=== PATIENT | female | born 1955 | race Hispanic/Latino ===

== ENCOUNTER 2017-05-23 21:34 | Observation (INO) | payer MEDICARE, OTHER ==
[2017-05-23] MEDS ORDERED: Sodium Chloride 0.9% 1,000 ML IV STA (21:55)
[2017-05-23 22:05] LABS: BASO # 0.03 K/mm3 (0.0-2.0); BASO % 0.3 % (0.0-3.0); EOS # 0.1 (0.0-0.7); GRAN # 7.89 (1.4-6.5); GRAN % 74.7 % (50.0-68.0); HEMATOCRIT 33.4 % (36.0-48.0); LYMPH # 1.8 (1.2-3.4); LYMPH % 16.8 % (22.0-35.0); MEAN CELL VOLUME 84.6 fl (80.0-105.0); MEAN CORPUSCULAR HEMOGLOBIN 27.6 pg (25.0-35.0); MEAN CORPUSCULAR HGB CONC 32.6 g/dl (31.0-37.0); MEAN PLATELET VOLUME 9.5 fl (7.0-11.0); MONO # 0.8 (0.1-0.6); MONO % 7.2 % (1.0-6.0); RED CELL DISTRIBUTION WIDTH 13.8 % (11.5-14.5); WHITE BLOOD COUNT 10.6 10^3/ul (4.5-11.0)
[2017-05-23 22:14] LABS: ALB/GLOB RATIO 1.1 (1.1-1.8); ALKALINE PHOSPHATASE 100 U/L (38-126); ALT/SGPT 21 U/L (7-56); AST/SGOT 36 U/L (14-36); BILIRUBIN,TOTAL 0.7 mg/dL (0.2-1.3); BLOOD UREA NITROGEN 20 mg/dL (7-21); CALCIUM 10.1 mg/dL (8.4-10.5); CARBON DIOXIDE 30 mmol/L (21-33); CHLORIDE 97 mmol/L (98-107); GFR AFRICAN-AMERICAN > 60; GLUCOSE,RANDOM 187 mg/dL (70-110); MAGNESIUM 1.7 mg/dL (1.7-2.2); SODIUM 137 mmol/L (132-148); TOTAL PROTEIN 8.1 g/dL (5.8-8.3)
[2017-05-23 22:20] LABS: INR 1.03 (0.93-1.08); PARTIAL THROMBOPLASTIN TIME 26.8 Seconds (25.1-36.5)
[2017-05-23 22:30] LABS: TROPONIN I < 0.01 ng/mL
--- NOTE | 2017-05-23 22:53 | ED PDOC ---
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 By ED arrival pt. AOx 3 w/ documented triage vitals, endorses rememebering talking with her daughter, then feeling a sudden pain in her rt foot as well as her left neck, w/ sudden left sided scm muscle tenderness. Pt next remembers awakeining to ems query. She denies any current cp/sob/diallo headache / palpitations/nausea nor diaphoresis. Pt has been off ac x 1-1.5 wks. Pt. received rt. tka replacement in 11/07 and sicne then has undergone 5-6 washouts in a long protracted post op course w/ repeat infections, has a known PE which was originally diagnosed in the setting of syncope. PMD's Jean Marie Hudson Bayardo. 05/23/17 22:46 05/23/17 23:04 05/23/17 23:41 Past Medical History - Provider Review Nursing Documentation Reviewed: Yes - Infectious Disease Hx of Infectious Diseases: None - Tetanus Immunization Tetanus Immunization: Unknown - Reproductive Menopause: Yes - Cardiac Hx Cardiac Disorders: Yes Hx Hypertension: Yes Hx Pacemaker: No Other/Comment: CAD - Pulmonary Hx Respiratory Disorders: No Hx Pulmonary Embolism: Yes - Neurological Hx Neurological Disorder: No Hx Dizziness: Yes (SYNCOPE X2) Hx Syncope: Yes Other/Comment: Cerebral aneurysm - HEENT Hx HEENT Disorder: No Other/Comment: left eye aneurysm - Renal Hx Renal Disorder: No Hx Kidney Stones: Yes - Endocrine/Metabolic Hx Endocrine Disorders: Yes Hx Diabetes Mellitus Type 2: Yes - Hematological/Oncological Hx Blood Disorders: No Hx Blood Transfusions: Yes (20 YRS AGO) Hx Blood Transfusion Reaction: No - Integumentary Hx Dermatological Disorder: Yes Hx Eczema: Yes Hx Psoriasis: Yes Other/Comment: NECROSIS RIGHT KNEE - Musculoskeletal/Rheumatological Hx Musculoskeletal Disorders: Yes Hx Arthritis: Yes Hx Back Pain: Yes Hx Falls: Yes Hx Herniated Disk: Yes Hx Unsteady Gait: Yes Other/Comment: LIMIT JOINT MOTION - Gastrointestinal Hx Gastrointestinal Disorders: No Hx Gastroesophageal Reflux: Yes Other/Comment: Umbilical Hernia Repair - Genitourinary/Gynecological Hx Genitourinary Disorders: No Other/Comment: KIDNEY STONES 12-04-12 - Psychiatric Hx Psychophysiologic Disorder: No Hx Depression: No Hx Emotional Abuse: No Hx Physical Abuse: No Hx Substance Use: No - Surgical History Hx Appendectomy: Yes Hx Hysterectomy: Yes Hx Joint Replacement: Yes (RIGHT KNEE) Hx Orthopedic Surgery: Yes (RIGHT KNEE X3) Hx Tonsillectomy: Yes Other/Comment: HYSTERECTOMY - Anesthesia Hx Anesthesia: Yes Hx Anesthesia Reactions: No Hx Malignant Hyperthermia: No - Suicidal Assessment Feels Threatened In Home Enviroment: No Family/Social History - Physician Review Nursing Documentation Reviewed: Yes Family/Social History: No Known Family HX Smoking Status: Never Smoked Hx Alcohol Use: No Hx Substance Use: No Hx Substance Use Treatment: No Allergies/Home Meds Allergies/Adverse Reactions: Allergies codeine Allergy (Severe, Verified 05/23/17 21:59) HALLUCINATIONS Home Medications: Home Meds Medication Instructions Recorded Confirmed Metformin HCl 1,000 mg PO BID 04/11/12 05/22/17 Canagliflozin [Invokana] 300 mg PO QAM 04/14/16 05/22/17 Valsartan [Diovan] 160 mg PO DAILY 09/28/16 05/22/17 Acetaminophen [Tylenol 325mg tab] 650 mg PO Q4H PRN 12/01/16 05/22/17 Aspirin [Ecotrin] 81 mg PO DAILY 02/16/17 05/22/17 Atorvastatin [Lipitor] 40 mg PO HS 02/16/17 05/22/17 Calcium Carbonate/Vitamin D3 1 tab PO BID 02/16/17 05/22/17 [Calcium 500-Vit D3 200 Tablet] Carbamide Peroxide [Debrox Ear 1 drop AU BID 02/16/17 05/22/17 Drops] Clotrimazole/Betamethasone 1 appl TOP BID 02/16/17 05/22/17 [Lotrisone] DULoxetine [Cymbalta] 30 mg PO HS 02/16/17 05/22/17 Diclofenac Sodium [Voltaren] 1 appl TOP BID 02/16/17 05/22/17 Lidocaine Gel 4% 1 appl TOP BID 02/16/17 05/22/17 Multivitamin [Multi-Vitamin Daily] 1 tab PO DAILY 02/16/17 05/22/17 Phenyleph/Pramoxin/Glycr/W.pet 1 appl [place] DAILY PRN 02/16/17 05/22/17 [Preparation H Cream] Pregabalin [Lyrica] 100 mg PO TID 02/16/17 05/22/17 Zinc Oxide 1 appl TOP QSHIFT 02/16/17 05/22/17 traMADol [Ultram] 100 mg PO Q8H PRN 02/16/17 05/22/17 Acetaminophen/Codeine 1 tab PO Q4 PRN 05/22/17 05/22/17 [Tylenol/Codeine 300 MG/30 MG] Meclizine [Antivert] 12.5 mg PO BID 05/22/17 05/22/17 Rosuvastatin Calcium [Crestor] 40 mg PO DAILY 05/22/17 05/22/17 Review of Systems - Physician Review All systems were reviewed & negative as marked: Yes - Review of Systems Constitutional: Normal Eyes: Normal ENT: Normal Respiratory: Normal Cardiovascular: Normal Gastrointestinal: Normal Genitourinary Female: Normal Musculoskeletal: Normal Skin: Normal Neurological: Normal Endocrine: Normal Hemo/Lymphatic: Normal Psychiatric: Normal Physical Exam Vital Signs Temp Pulse Resp BP Pulse Ox 05/23/17 22:01 98.5 F 80 22 119/59 L 97 05/23/17 21:34 98.5 F 95 H 16 119/57 L 96 Temperature: Afebrile Blood Pressure: Normal Pulse: Regular Respiratory Rate: Normal Appearance: Positive for: Well-Appearing, Non-Toxic, Comfortable Pain Distress: None Mental Status: Positive for: Alert and Oriented X 3 Finger Stick Blood Glucose: 187 - Systems Exam Head: Present: Atraumatic, Normocephalic Pupils: Present: PERRL Extroacular Muscles: Present: EOMI Conjunctiva: Present: Normal Mouth: Present: Moist Mucous Membranes Neck: Present: Other (left sided scm ttp , no auscultatble bruit therein ) Respiratory/Chest: Present: Clear to Auscultation, Good Air Exchange. No: Respiratory Distress, Accessory Muscle Use Cardiovascular: Present: Regular Rate and Rhythm, Normal S1, S2. No: Murmurs Abdomen: Present: Normal Bowel Sounds. No: Tenderness, Distention, Peritoneal Signs Back: Present: Normal Inspection Upper Extremity: Present: Normal Inspection. No: Cyanosis, Edema Lower Extremity: Present: Other (rt knee w/ relative calor, but no cellultic changes, + knee drain in place w/ clean serosanguinous fluid draining therefrom , no politeal fossa fullnes/calf ttp, but rle mildly swollen). No: Edema Neurological: Present: GCS=15, CN II-XII Intact, Speech Normal, Motor Func Grossly Intact, Normal Sensory Function, Normal Cerebellar Funct, Norm Deep Tendon Reflexes, Gait Normal, Other (nihss:0) Skin: Present: Warm, Dry, Normal Color. No: Rashes Psychiatric: Present: Alert, Oriented x 3, Normal Insight, Normal Concentration Medical Decision Making ED Course and Treatment: r/o PE vs aortic dissection the former of much higher probability pt. should be repleced on ac regardless if dissection (-) and c head ctw/ and w/ out contrast (-) cerebral aneurysmal ruputre(-). Given fact that ictus< 1 hour of onset lp not necessary to r/o xanthrochromia/sah. Pt should be admitted for ac bridging. 05/23/17 23:09 - Lab Interpretations Lab Results: 05/23/17 21:57 05/23/17 21:57 Lab Results 05/23/17 21:57: PT 11.2, INR 1.03, APTT 26.8 05/23/17 21:57: Sodium 137, Potassium 5.0, Chloride 97 L, Carbon Dioxide 30, Anion Gap 15, BUN 20, Creatinine 0.9, Est GFR ( Amer) > 60, Est GFR (Non- Af Amer) > 60, Random Glucose 187 H, Calcium 10.1, Magnesium 1.7, Total Bilirubin 0.7, AST 36, ALT 21, Alkaline Phosphatase 100, Lactate Dehydrogenase 425, Total Creatine Kinase 77, Troponin I < 0.01, NT-Pro-B Natriuret Pep 173, Total Protein 8.1, Albumin 4.3, Globulin 3.8, Albumin/Globulin Ratio 1.1 05/23/17 21:57: WBC 10.6 D, RBC 3.95, Hgb 10.9 L, Hct 33.4 L, MCV 84.6, MCH 27.6, MCHC 32.6, RDW 13.8, Plt Count 284, MPV 9.5, Gran % 74.7 H, Lymph % (Auto ) 16.8 L, [place] % (Auto) 7.2 H, Eos % (Auto) 1.0 L, Baso % (Auto) 0.3, Gran # 7.89 H, Lymph # 1.8, [place] # 0.8 H, Eos # 0.1, Baso # 0.03 - RAD Interpretation Radiology Orders: 05/23/17 21:52 CHEST PORTABLE [RAD] Stat 05/23/17 21:53 ANGIOGRAPHY DISECTION PROTOCOL [CT] Stat CTA HEAD & NECK BUNDLE [CT] Stat 05/23/17 22:46 HEAD W/O CONTRAST [CT] Stat - Medication Orders Current Medication Orders: Discontinued Medications Sodium Chloride (Sodium Chloride 0.9%) 1,000 mls @ 999 mls/hr IV .Q1H1M STA Stop: 05/23/17 22:55 Last Admin: 05/23/17 22:52 Dose: 999 mls/hr eMAR Start Stop Document 05/23/17 22:52 SC (Rec: 05/23/17 22:52 SC [id number]) Intravenous Solution Start Date 05/23/17 Start Time 22:52 End Date 05/23/17 End time 23:52 Total Infusion Time 60 Disposition/Present on Arrival - Present on Arrival History of DVT/PE: Yes History of Uncontrolled Diabetes: Yes Urinary Catheter: No History of Decub. Ulcer: No History Surgical Site Infection Following: Orthopedic Procedures - Disposition Referrals: Phil Durand MD [Primary Care Provider] - Follow up with primary Forms: [employer]elight (Chilean)
--- NOTE | 2017-05-23 23:46 | CT ---
EXAM: CT Head Without Intravenous Contrast CLINICAL HISTORY: 61 years old, female; Signs and symptoms; Dizziness; Additional info: Syncope TECHNIQUE: Axial computed tomography images of the head/brain without intravenous contrast. All CT scans at this facility use one or more dose reduction techniques, viz.: automated exposure control; ma/kV adjustment per patient size (including targeted exams where dose is matched to indication; i.e. head); or iterative reconstruction technique. COMPARISON: CT - HEAD W/O (CODE STROKE) 2016-05-07 09:59 FINDINGS: Brain: No acute intracranial hemorrhage. Age-appropriate periventricular white matter disease. No edema. Ventricles: Age-appropriate ventriculomegaly. Bones: No acute displaced fracture. Sinuses: Unremarkable as visualized. No acute sinusitis. Mastoid air cells: Unremarkable as visualized. No mastoid effusion. IMPRESSION: No acute intracranial hemorrhage, or suspicious mass effect.
--- NOTE | 2017-05-24 00:02 | ED PDOC ---
Physical Exam Vital Signs Reviewed: Yes Vital Signs Temp Pulse Resp BP Pulse Ox 05/23/17 22:01 98.5 F 80 22 119/59 L 97 05/23/17 21:34 98.5 F 95 H 16 119/57 L 96 Temperature: Afebrile Blood Pressure: Hypotensive Pulse: Regular Respiratory Rate: Normal Appearance: Positive for: Well-Appearing, Non-Toxic, Comfortable Pain Distress: None Mental Status: Positive for: Alert and Oriented X 3 Finger Stick Blood Glucose: 187 Medical Decision Making ED Course and Treatment: 05/24/17 00:02 Case signed out to me, pending CT scans of neck, head and chest. History noted by Dr. Shabazz, who endorsed patient. Patient with a history of syncopal episode, following pain to right leg and neck area. Patient undergone recent wash out of knee on affected area. Patient has a history of pulmonary embolism (November 2016). Patient was on Coumadin, recently stopped following knee surgery. Currently not on Coumadin. No history of chest pain or shortness of breath. Patient has been awake and alert while in emergency department. CT Head Without Intravenous Contrast IMPRESSION: No acute intracranial hemorrhage, or suspicious mass effect. Dictated and Authenticated by: Fariba Mccormick MD 05/23/2017 11:46 PM Eastern Time ([place] & [place]) CT Angiography Head With Intravenous Contrast FINDINGS: Right internal carotid artery: No acute findings. Intracranial segment is patent with no significant stenosis. No aneurysm. Right anterior cerebral artery: Unremarkable. No occlusion or significant stenosis. No aneurysm. Right middle cerebral artery: Unremarkable. No occlusion or significant stenosis. No aneurysm. Right posterior cerebral artery: Unremarkable. No occlusion or significant stenosis. No aneurysm. Right vertebral artery: Unremarkable as visualized. Left internal carotid artery: No acute findings. Intracranial segment is patent with no significant stenosis. No aneurysm. Left anterior cerebral artery: Unremarkable. No occlusion or significant stenosis. No aneurysm. Left middle cerebral artery: Unremarkable. No occlusion or significant stenosis. No aneurysm. Left posterior cerebral artery: Unremarkable. No occlusion or significant stenosis. No aneurysm. Left vertebral artery: Unremarkable as visualized. Basilar artery: Unremarkable. No occlusion or significant stenosis. No aneurysm. IMPRESSION: Normal head CTA. CT Angiography Neck With Intravenous Contrast FINDINGS: VASCULATURE: Right common carotid artery: Unremarkable. No significant stenosis. No dissection or occlusion. Right internal carotid artery: Unremarkable. Extracranial segment is patent with no significant stenosis. No dissection or occlusion. Right external carotid artery: Unremarkable. No occlusion. Right vertebral artery: Unremarkable. No significant stenosis. No dissection or occlusion. Left common carotid artery: Unremarkable. No significant stenosis. No dissection or occlusion. Left internal carotid artery: Unremarkable. Extracranial segment is patent with no significant stenosis. No dissection or occlusion. Left external carotid artery: Unremarkable. No occlusion. Left vertebral artery: Unremarkable. No significant stenosis. No dissection or occlusion. NECK: Bones/joints: No acute fracture. No dislocation. Soft tissues: Unremarkable as visualized. CAROTID STENOSIS REFERENCE USING NASCET CRITERIA: % ICA stenosis = (1 - narrowest ICA diameter/diameter of distal cervical ICA) x 100. Mild - <50% stenosis. Moderate - 50-69% stenosis. Severe - 70-94% stenosis. Near occlusion - 95-99% stenosis. Occluded - 100% stenosis. IMPRESSION: Normal neck CTA. Dictated and Authenticated by: Fariba Mccormick MD 05/24/2017 12:24 AM Eastern Time ([place] & [place]) CT Angiography Chest without and with With Intravenous Contrast IMPRESSION: No pulmonary embolism. No dissection. The lungs are clear. CT Angiography Abdomen and Pelvis With Intravenous Contrast FINDINGS: VASCULATURE: Aorta: No acute findings. No abdominal aortic aneurysm. No dissection. Celiac trunk and mesenteric arteries: No acute findings. No occlusion or significant stenosis. Renal arteries: No acute findings. No occlusion or significant stenosis. Iliac arteries: No acute findings. No occlusion or significant stenosis. ABDOMEN: Liver: No acute findings. Gallbladder and bile ducts: The gallbladder is only minimally distended, without calcified stones. No significant intra- or extrahepatic biliary ductal dilation. Pancreas: Enhances homogeneously. No ductal dilation. No discrete mass. Spleen: No acute findings. Adrenals: No acute findings. Kidneys and ureters: No acute findings. No hydronephrosis or renal calculi. No discrete solid mass. PELVIS: Bladder: No acute findings. Reproductive: Atrophy versus surgical absence. Appendix: The appendix is not definitively visualized, however no pericecal inflammatory change is identified to suggest the presence of acute appendicitis. ABDOMEN and PELVIS: Stomach and bowel: No obstruction. No mucosal thickening. Peritoneum: No significant fluid collection. No free air. Lymph nodes: No pathologically enlarged lymph nodes. Bones: No acute fracture. IMPRESSION: No acute findings in the arterial system of the abdomen and pelvis. Dictated and Authenticated by: Fariba Mccormick MD 05/24/2017 12:21 AM Eastern Time ([place] & [place]) 05/24/17 00:[address] Danielle, who accepts patient under hospitalist service for syncope. - Lab Interpretations Lab Results: 05/23/17 21:57 05/23/17 21:57 Lab Results 05/23/17 21:57: PT 11.2, INR 1.03, APTT 26.8 05/23/17 21:57: Sodium 137, Potassium 5.0, Chloride 97 L, Carbon Dioxide 30, Anion Gap 15, BUN 20, Creatinine 0.9, Est GFR ( Amer) > 60, Est GFR (Non- Af Amer) > 60, Random Glucose 187 H, Calcium 10.1, Magnesium 1.7, Total Bilirubin 0.7, AST 36, ALT 21, Alkaline Phosphatase 100, Lactate Dehydrogenase 425, Total Creatine Kinase 77, Troponin I < 0.01, NT-Pro-B Natriuret Pep 173, Total Protein 8.1, Albumin 4.3, Globulin 3.8, Albumin/Globulin Ratio 1.1 05/23/17 21:57: WBC 10.6 D, RBC 3.95, Hgb 10.9 L, Hct 33.4 L, MCV 84.6, MCH 27.6, MCHC 32.6, RDW 13.8, Plt Count 284, MPV 9.5, Gran % 74.7 H, Lymph % (Auto ) 16.8 L, [place] % (Auto) 7.2 H, Eos % (Auto) 1.0 L, Baso % (Auto) 0.3, Gran # 7.89 H, Lymph # 1.8, [place] # 0.8 H, Eos # 0.1, Baso # 0.03 I have reviewed the lab results: Yes - RAD Interpretation Radiology Orders: 05/23/17 21:52 CHEST PORTABLE [RAD] Stat 05/23/17 21:53 ANGIOGRAPHY DISECTION PROTOCOL [CT] Stat CTA HEAD & NECK BUNDLE [CT] Stat 05/23/17 22:46 HEAD W/O CONTRAST [CT] Stat - Medication Orders Current Medication Orders: Discontinued Medications Sodium Chloride (Sodium Chloride 0.9%) 1,000 mls @ 999 mls/hr IV .Q1H1M STA Stop: 05/23/17 22:55 Last Admin: 05/23/17 22:52 Dose: 999 mls/hr eMAR Start Stop Document 05/23/17 22:52 SC (Rec: 05/23/17 22:52 SC [id number]) Intravenous Solution Start Date 05/23/17 Start Time 22:52 End Date 05/23/17 End time 23:52 Total Infusion Time 60 - Scribe Statement The provider has reviewed the documentation as recorded by the Apolinaribraffy Ruth Provider Scribe Attestation: All medical record entries made by the Scribe were at my direction and personally dictated by me. I have reviewed the chart and agree that the record accurately reflects my personal performance of the history, physical exam, medical decision making, and the department course for this patient. I have also personally directed, reviewed, and agree with the discharge instructions and disposition. Disposition/Present on Arrival - Present on Arrival Any Indicators Present on Arrival: No History of DVT/PE: Yes History of Uncontrolled Diabetes: Yes Urinary Catheter: No History of Decub. Ulcer: No History Surgical Site Infection Following: Orthopedic Procedures - Disposition Have Diagnosis and Disposition been Completed?: Yes Diagnosis: Syncope Disposition: HOSPITALIZED Disposition Time: 00:42 Patient Plan: Observation Condition: STABLE Discharge Instructions (ExitCare): Syncope (ED) Referrals: Phil Durand MD [Primary Care Provider] - Follow up with primary Forms: [employer] ([place] Islander)
--- NOTE | 2017-05-24 00:21 | CT ---
EXAM: CT Angiography Chest without and with With Intravenous Contrast CLINICAL HISTORY: 61 years old, female; Pain; Abdominal pain; Acute; Chest pain; Type not specified; Additional info: R/O dissection vs pe TECHNIQUE: Axial computed tomographic angiography images of the chest with intravenous contrast using pulmonary embolism protocol. All CT scans at this facility use one or more dose reduction techniques, viz.: automated exposure control; ma/kV adjustment per patient size (including targeted exams where dose is matched to indication; i.e. head); or iterative reconstruction technique. MIP reconstructed images were created and reviewed. Coronal and sagittal reformatted images were created and reviewed. CONTRAST: 100 mL of OMNI 350 administered intravenously. COMPARISON: No relevant prior studies available. FINDINGS: Pulmonary arteries: No pulmonary embolism. Aorta: No thoracic aortic aneurysm. No dissection. Lungs: No mass. No consolidation. Pleural spaces: No significant effusion. No pneumothorax. Heart: No cardiomegaly. No significant pericardial effusion. No evidence of right heart dysfunction. Bones: No acute fracture. Lymph nodes: No pathologically enlarged lymph nodes. IMPRESSION: No pulmonary embolism. No dissection. The lungs are clear. EXAM: CT Angiography Abdomen and Pelvis With Intravenous Contrast CLINICAL HISTORY: 61 years old, female; Pain; Abdominal pain; Acute; Chest pain; Type not specified; Additional info: R/O dissection vs pe TECHNIQUE: Axial computed tomographic angiography images of the abdomen and pelvis with intravenous contrast. All CT scans at this facility use one or more dose reduction techniques, viz.: automated exposure control; ma/kV adjustment per patient size (including targeted exams where dose is matched to indication; i.e. head); or iterative reconstruction technique. MIP reconstructed images were created and reviewed. Coronal and sagittal reformatted images were created and reviewed. CONTRAST: 100 mL of OMNI 350 administered intravenously. COMPARISON: No relevant prior studies available. FINDINGS: VASCULATURE: Aorta: No acute findings. No abdominal aortic aneurysm. No dissection. Celiac trunk and mesenteric arteries: No acute findings. No occlusion or significant stenosis. Renal arteries: No acute findings. No occlusion or significant stenosis. Iliac arteries: No acute findings. No occlusion or significant stenosis. ABDOMEN: Liver: No acute findings. Gallbladder and bile ducts: The gallbladder is only minimally distended, without calcified stones. No significant intra- or extrahepatic biliary ductal dilation. Pancreas: Enhances homogeneously. No ductal dilation. No discrete mass. Spleen: No acute findings. Adrenals: No acute findings. Kidneys and ureters: No acute findings. No hydronephrosis or renal calculi. No discrete solid mass. PELVIS: Bladder: No acute findings. Reproductive: Atrophy versus surgical absence. Appendix: The appendix is not definitively visualized, however no pericecal inflammatory change is identified to suggest the presence of acute appendicitis. ABDOMEN and PELVIS: Stomach and bowel: No obstruction. No mucosal thickening. Peritoneum: No significant fluid collection. No free air. Lymph nodes: No pathologically enlarged lymph nodes. Bones: No acute fracture. IMPRESSION: No acute findings in the arterial system of the abdomen and pelvis.
--- NOTE | 2017-05-24 00:24 | CT ---
EXAM: CT Angiography Head With Intravenous Contrast CLINICAL HISTORY: 61 years old, female; Pain; Headache; Additional info: Aneurysm behind eye/syncope TECHNIQUE: Axial computed tomographic angiography images of the head with intravenous contrast using CT angiography protocol. All CT scans at this facility use one or more dose reduction techniques, viz.: automated exposure control; ma/kV adjustment per patient size (including targeted exams where dose is matched to indication; i.e. head); or iterative reconstruction technique. MIP reconstructed images were created and reviewed. Coronal and sagittal reformatted images were created and reviewed. CONTRAST: 50 mL of OMNI 350 administered intravenously. COMPARISON: No relevant prior studies available. FINDINGS: Right internal carotid artery: No acute findings. Intracranial segment is patent with no significant stenosis. No aneurysm. Right anterior cerebral artery: Unremarkable. No occlusion or significant stenosis. No aneurysm. Right middle cerebral artery: Unremarkable. No occlusion or significant stenosis. No aneurysm. Right posterior cerebral artery: Unremarkable. No occlusion or significant stenosis. No aneurysm. Right vertebral artery: Unremarkable as visualized. Left internal carotid artery: No acute findings. Intracranial segment is patent with no significant stenosis. No aneurysm. Left anterior cerebral artery: Unremarkable. No occlusion or significant stenosis. No aneurysm. Left middle cerebral artery: Unremarkable. No occlusion or significant stenosis. No aneurysm. Left posterior cerebral artery: Unremarkable. No occlusion or significant stenosis. No aneurysm. Left vertebral artery: Unremarkable as visualized. Basilar artery: Unremarkable. No occlusion or significant stenosis. No aneurysm. IMPRESSION: Normal head CTA. EXAM: CT Angiography Neck With Intravenous Contrast CLINICAL HISTORY: 61 years old, female; Pain; Headache; Additional info: Aneurysm behind eye/syncope TECHNIQUE: Axial computed tomographic angiography images of the neck with intravenous contrast using CT angiography protocol. All CT scans at this facility use one or more dose reduction techniques, viz.: automated exposure control; ma/kV adjustment per patient size (including targeted exams where dose is matched to indication; i.e. head); or iterative reconstruction technique. MIP reconstructed images were created and reviewed. Coronal and sagittal reformatted images were created and reviewed. CONTRAST: 50 mL of OMNI 350 administered intravenously. COMPARISON: CT - HEAD W/O CONTRAST 2017-05-23 23:17 FINDINGS: VASCULATURE: Right common carotid artery: Unremarkable. No significant stenosis. No dissection or occlusion. Right internal carotid artery: Unremarkable. Extracranial segment is patent with no significant stenosis. No dissection or occlusion. Right external carotid artery: Unremarkable. No occlusion. Right vertebral artery: Unremarkable. No significant stenosis. No dissection or occlusion. Left common carotid artery: Unremarkable. No significant stenosis. No dissection or occlusion. Left internal carotid artery: Unremarkable. Extracranial segment is patent with no significant stenosis. No dissection or occlusion. Left external carotid artery: Unremarkable. No occlusion. Left vertebral artery: Unremarkable. No significant stenosis. No dissection or occlusion. NECK: Bones/joints: No acute fracture. No dislocation. Soft tissues: Unremarkable as visualized. CAROTID STENOSIS REFERENCE USING NASCET CRITERIA: % ICA stenosis = (1 - narrowest ICA diameter/diameter of distal cervical ICA) x 100. Mild - <50% stenosis. Moderate - 50-69% stenosis. Severe - 70-94% stenosis. Near occlusion - 95-99% stenosis. Occluded - 100% stenosis. IMPRESSION: Normal neck CTA.
--- NOTE | 2017-05-24 01:52 | CP.PCM.HP ---
<Kvng Mesa - Last Filed: 05/24/17 23:06> History of Present Illness - History of Present Illness History of Present Illness: This is a 61 year old female with a past medical history for hypertension, DM2, p.e. (on Xarelto) who comes in complaining of a syncopal episode after being discharged from [facility] after a knee replacement surgery. The patient' s daughter reports the mother feeling dizzy in the wheelchair and soon after her head fell to the side and she was un-arousable for a reported 20 seconds. The patient denies any alleviating or modifying factors. The patient denies bowel or bladder incontinence, chest pain, shortness of breath, nausea ,vomiting , abdominal pain, changes in vision, or any other complaints. Surgical history: Appendectomy, hysterectomy, Left knee repair, Tosillectomy Allergies: Codeine Medications: See MAR Family history: Non contributory Social history: No tobacco or etoh. Denies illicit drug use. Present on Admission - Present on Admission Any Indicators Present on Admission: No Review of Systems - Constitutional Constitutional: absent: Anorexia, Chills, Headache, Night Sweats, Weakness - EENT Eyes: absent: Blurred Vision, Diplopia, Discharge, Itchy Eyes, Loss of Peripheral Vision, Requires Corrective Lenses Ears: Dizziness. absent: Disequilibrium Nose/Mouth/Throat: absent: Nasal Trauma, Bleeding Gums, Dysphagia, Mouth Lesions - Cardiovascular Cardiovascular: Syncope. absent: Chest Pain, Irregular Heart Rhythm, Orthopnea , Palpitations, Paroxysmal Nocturnal Dyspnea, Pedal Edema, Slow Heart Rate - Respiratory Respiratory: absent: Dyspnea, Hemoptysis, Stridor, Change in Mucous Color - Gastrointestinal Gastrointestinal: absent: Abdominal Pain, Belching, Dyspepsia, Melena, Nausea, Vomiting - Musculoskeletal Musculoskeletal: absent: Abnormal Gait, Arthralgias, Muscle Weakness, Myalgias, Stiffness - Integumentary Integumentary: absent: Change in Pigmentation, Changing Lesions, Rash, Striae, Swelling, Unusual Bruising - Neurological Neurological: Dizziness, Syncope. absent: Abnormal Hearing, Burning Sensations , Lack of Coordination, Radicular Pain, Tingling - Psychiatric Psychiatric: absent: Behavioral Changes, Depression, Hopelessness, Panic Attacks - Endocrine Endocrine: absent: Change in Body Appearance, Deepening of Voice, Polydipsia, Polyphagia, Polyuria - Hematologic/Lymphatic Hematologic: absent: Easy Bleeding, Easy Bruising Past Patient History - Infectious Disease Hx of Infectious Diseases: None - Tetanus Immunizations Tetanus Immunization: Unknown - Past Medical History & Family History Past Medical History?: Yes - Past Social History Smoking Status: Never Smoked - CARDIAC Hx Cardiac Disorders: Yes Hx Hypertension: Yes Hx Pacemaker: No Other/Comment: CAD - PULMONARY Hx Respiratory Disorders: No Hx Pulmonary Embolism: Yes - NEUROLOGICAL Hx Neurological Disorder: No Hx Dizziness: Yes (SYNCOPE X2) Hx Syncope: Yes Other/Comment: Cerebral aneurysm - HEENT Hx HEENT Problems: No Other/Comment: left eye aneurysm - RENAL Hx Chronic Kidney Disease: No Hx Kidney Stones: Yes - ENDOCRINE/METABOLIC Hx Endocrine Disorders: Yes Hx Diabetes Mellitus Type 2: Yes - HEMATOLOGICAL/ONCOLOGICAL Hx Blood Disorders: No Hx Blood Transfusions: Yes (20 YRS AGO) Hx Blood Transfusion Reaction: No - INTEGUMENTARY Hx Dermatological Problems: Yes Hx Eczema: Yes Hx Psoriasis: Yes Other/Comment: NECROSIS RIGHT KNEE - MUSCULOSKELETAL/RHEUMATOLOGICAL Hx Musculoskeletal Disorders: Yes Hx Arthritis: Yes Hx Back Pain: Yes Hx Falls: Yes Hx Herniated Disk: Yes Hx Unsteady Gait: Yes Other/Comment: LIMIT JOINT MOTION - GASTROINTESTINAL Hx Gastrointestinal Disorders: No Hx Gastroesophageal Reflux: Yes Other/Comment: Umbilical Hernia Repair - GENITOURINARY/GYNECOLOGICAL Hx Genitourinary Disorders: No Other/Comment: KIDNEY STONES 12-04-12 - PSYCHIATRIC Hx Psychophysiologic Disorder: No Hx Depression: No Hx Emotional Abuse: No Hx Physical Abuse: No Hx Substance Use: No - SURGICAL HISTORY Hx Appendectomy: Yes Hx Hysterectomy: Yes Hx Joint Replacement: Yes (RIGHT KNEE) Hx Orthopedic Surgery: Yes (RIGHT KNEE X3) Hx Tonsillectomy: Yes Other/Comment: HYSTERECTOMY - ANESTHESIA Hx Anesthesia: Yes Hx Anesthesia Reactions: No Hx Malignant Hyperthermia: No Meds Allergies/Adverse Reactions: Allergies Allergy/AdvReac Type Severity Reaction Status Date / Time codeine Allergy Severe HALLUCINATI Verified 05/23/17 21:59 ONS Physical Exam - Head Exam Head Exam: ATRAUMATIC, NORMAL INSPECTION, NORMOCEPHALIC - Eye Exam Eye Exam: EOMI, Normal appearance, PERRL. absent: Periorbital tenderness Pupil Exam: NORMAL ACCOMODATION, PERRL. absent: Irregular, Unequal - ENT Exam ENT Exam: Mucous Membranes Moist, Normal Exam, Normal Oropharynx. absent: TM's Normal Bilaterally - Neck Exam Neck exam: Positive for: Normal Inspection. Negative for: Lymphadenopathy, Meningismus, Thyromegaly - Respiratory Exam Respiratory Exam: Clear to Auscultation Bilateral, NORMAL BREATHING PATTERN. absent: Chest Wall Tenderness, Prolonged Expiratory Phase, Respiratory Distress - Cardiovascular Exam Cardiovascular Exam: REGULAR RHYTHM, +S1, +S2. absent: Gallop, Rubs - GI/Abdominal Exam GI & Abdominal Exam: Normal Bowel Sounds, Soft. absent: Distended, Organomegaly , Tenderness - Extremities Exam Extremities exam: Positive for: normal inspection. Negative for: full ROM, joint swelling, pedal edema Additional comments: decreased rom of left extremity - Back Exam Back exam: NORMAL INSPECTION. absent: CVA tenderness (L), CVA tenderness (R), paraspinal tenderness - Neurological Exam Neurological exam: Alert, CN II-XII Intact, Oriented x3 - Psychiatric Exam Psychiatric exam: Normal Affect, Normal Mood - Skin Skin Exam: Dry, Intact, Normal Color Results - Vital Signs Recent Vital Signs: Last Vital Signs Temp 98.5 F 05/23/17 22:01 Pulse 86 05/24/17 01:36 Resp 16 05/24/17 01:36 BP 96/57 L 05/24/17 01:36 Pulse Ox 96 05/24/17 01:36 - Labs Result Diagrams: 05/24/17 06:20 05/24/17 06:20 Assessment & Plan - Assessment and Plan (Free Text) Assessment: 61 year old female with pmhx of hypertension, dm2, and pe and s/p left knee revision who comes in for episode of syncope. Plan: 1.Syncope (cardio vs. neuro) -Hypotensive upon admission s/p 1 Liter of iv fluids in E.D. -1Liter of NS at 125mls/ hr. -Neuro checks q4. -Orthostatics ordered. Will f/u with results. -Neurology consulted. Will f/u with recs. -Cardiology consulted. Will f/u with recs. 2.DM -ISS medium. -Accuchecks ACHS 3. Hypertension -continue home medications 4.H/O of Pulmonary embolism -Xarelto restarted. -no acute intervention required at this time. GI ppx -Protonix DVT/PE ppx -Xarelto <Sukumar Danielle - Last Filed: 05/25/17 19:24> Results - Vital Signs Recent Vital Signs: Last Vital Signs Temp 99 F 05/25/17 18:00 Pulse 87 05/25/17 18:00 Resp 18 05/25/17 18:00 BP 136/67 05/25/17 18:00 Pulse Ox 94 L 05/25/17 06:00 - Labs Result Diagrams: 05/25/17 06:15 05/25/17 06:15 Labs: Laboratory Results - last 24 hr 05/25/17 05/25/17 05/25/17 06:15 06:15 06:15 WBC 6.9 RBC 3.28 L Hgb 8.9 L Hct 27.9 L MCV 85.1 MCH 27.1 MCHC 31.9 RDW 13.8 Plt Count 209 MPV 9.3 Gran % 71.5 H Lymph % (Auto) 19.0 L [place] % (Auto) 7.9 H Eos % (Auto) 1.5 Baso % (Auto) 0.1 Gran # 4.90 Lymph # 1.3 [place] # 0.5 Eos # 0.1 Baso # 0.01 Sodium 142 Potassium 3.9 Chloride 106 Carbon Dioxide 28 Anion Gap 12 BUN 20 Creatinine 0.6 L Est GFR ( Amer) > 60 Est GFR (Non-Af Amer) > 60 Random Glucose 146 H Calcium 8.8 TIBC Ferritin Total Bilirubin 0.5 AST 20 ALT 28 Alkaline Phosphatase 77 Total Protein 6.4 Albumin 3.2 Globulin 3.2 Albumin/Globulin Ratio 1.0 L Vitamin B12 TSH 3rd Generation 0.37 L 05/25/17 05/25/17 08:39 08:39 WBC RBC Hgb Hct MCV MCH MCHC RDW Plt Count MPV Gran % Lymph % (Auto) [place] % (Auto) Eos % (Auto) Baso % (Auto) Gran # Lymph # [place] # Eos # Baso # Sodium Potassium Chloride Carbon Dioxide Anion Gap BUN Creatinine Est GFR ( Amer) Est GFR (Non-Af Amer) Random Glucose Calcium TIBC 263 L Ferritin 65.3 Total Bilirubin AST ALT Alkaline Phosphatase Total Protein Albumin Globulin Albumin/Globulin Ratio Vitamin B12 411 TSH 3rd Generation Attending/Attestation - Attestation I have personally seen and examined this patient.: Yes I have fully participated in the care of the patient.: Yes I have reviewed all pertinent clinical information: Yes Notes (Text): 05/25/17 19:24 Patient was seen when she was in the ER . Medical record was reviewed. Agree with history, physical examination, assessment and plan.
[2017-05-24] MEDS: Sodium Chloride 0.9% 1,000 ML IV SCH ×4 (02:54→19:58)
[2017-05-24 04:05] VITALS: BMI 27.1
[2017-05-24] MEDS ORDERED: Pneumococcal 23-Valent Vaccine IM ONE (04:05)
[2017-05-24] MEDS ORDERED: Influenza Vaccine 60 mcg/0.5 mL SYR (4YR UP) IM ONE (04:05)
[2017-05-24 07:13] LABS: BASO # 0.02 K/mm3 (0.0-2.0); BASO % 0.3 % (0.0-3.0); EOS # 0.1 (0.0-0.7); EOS % 0.9 % (1.5-5.0); GRAN # 5.7 (1.4-6.5); GRAN % 72.3 % (50.0-68.0); HEMATOCRIT 30.5 % (36.0-48.0); LYMPH # 1.5 (1.2-3.4); LYMPH % 19.4 % (22.0-35.0); MEAN CELL VOLUME 85.7 fl (80.0-105.0); MEAN CORPUSCULAR HGB CONC 31.5 g/dl (31.0-37.0); MEAN PLATELET VOLUME 9.5 fl (7.0-11.0); MONO # 0.6 (0.1-0.6); MONO % 7.1 % (1.0-6.0); RED CELL DISTRIBUTION WIDTH 13.6 % (11.5-14.5); WHITE BLOOD COUNT 7.9 10^3/ul (4.5-11.0)
[2017-05-24 07:25] LABS: ALB/GLOB RATIO 1.1 (1.1-1.8); ALKALINE PHOSPHATASE 81 U/L (38-126); ALT/SGPT 24 U/L (7-56); AST/SGOT 28 U/L (14-36); BILIRUBIN,TOTAL 0.4 mg/dL (0.2-1.3); BLOOD UREA NITROGEN 23 mg/dL (7-21); CALCIUM 9.3 mg/dL (8.4-10.5); CARBON DIOXIDE 31 mmol/L (21-33); CHLORIDE 102 mmol/L (98-107); GFR AFRICAN-AMERICAN > 60; GLUCOSE,RANDOM 173 mg/dL (70-110); POTASSIUM 4.3 mmol/L (3.6-5.0); SODIUM 141 mmol/L (132-148); TOTAL PROTEIN 6.9 g/dL (5.8-8.3)
[2017-05-24 07:31] LABS: TROPONIN I < 0.01 ng/mL
[2017-05-24] MEDS: Pantoprazole 40 mg EC Tab PO SCH (09:01)
[2017-05-24 09:57] LABS: CHOLESTEROL 156 mg/dL (130-200)
--- NOTE | 2017-05-24 10:15 | RAD ---
HISTORY: syncope COMPARISON: 05/15/2017 FINDINGS: LUNGS: No active pulmonary disease. PLEURA: No significant pleural effusion identified, no pneumothorax apparent. CARDIOVASCULAR: Top-normal heart size OSSEOUS STRUCTURES: Thoracic spondylosis. Bilateral shoulder arthrosis VISUALIZED UPPER ABDOMEN: Normal. OTHER FINDINGS: None. IMPRESSION: No interval acute cardiopulmonary pathology noted
--- NOTE | 2017-05-24 13:24 | CON ---
DATE: 05/24/2017 NEUROLOGY CONSULTATION CHIEF COMPLAINT: Syncope. HISTORY OF PRESENT ILLNESS: A 61-year-old woman with history of hypertension, type 2 diabetes mellitus, history of PE on Xarelto who complained of syncopal episode and has been discharged from [facility] after knee replacement surgery on the left knee. The patient felt dizzy in the wheelchair and sooner had fell to the side and she was unarousable for 20 seconds. No bowel or bladder incontinence. No history of seizure disorder and no history of meningitis. CAT scan of the head showed no acute intracranial abnormalities. CT angio of the head and neck showed no abnormalities. Currently, she is moving all extremities. No pronator seen. Sensory exam; light touch, pinprick, proprioception, and vibration is intact. She is on Lyrica for neuropathic pain 100 mg p.o. t.i.d. Currently, no further dizzy episodes. She was found to have low systolic and diastolic blood pressure when she came in and was given a bag of IV fluids. Currently, she is feeling much better. PAST MEDICAL HISTORY: History of tremors, appendectomy, hysterectomy, left knee repair, history of type 2 diabetes mellitus, PE on Xarelto, and hypertension. REVIEW OF SYSTEMS: A 14-point review of systems is negative except as per the HPI. MEDICATIONS: Reviewed by nurse reconciliation sheet. ALLERGIES: SHE IS ALLERGIC TO CODEINE. SOCIAL HISTORY: No illicit drug use, smoking, or EtOH abuse. PHYSICAL EXAMINATION: VITAL SIGNS: Temperature of 98.7, pulse rate of 85, blood pressure of 114/57, respiratory rate of 20, and oxygen saturation is 96% on room air. GENERAL: The patient is sitting up in bed, in no acute distress. HEENT: Atraumatic and normocephalic. PERRLA. Extraocular muscles intact. NECK: Supple. No JVD. No adenopathy noted. LUNGS: Clear to auscultation. No adventitious sounds. HEART: S1 and S2. Normal rate and rhythm. No murmurs, rubs or gallops. ABDOMEN: Soft, nontender, and nondistended. Bowel sounds are present. EXTREMITIES: No clubbing. No cyanosis. Peripheral pulses are 2+ bilaterally. NEUROLOGIC: The patient is alert and oriented to person, place, month and year. Speech is fluent without any errors. Cranial nerves II through XII are intact. Motor exam: Moves all extremities equally. Toes are downgoing bilaterally. Sensory exam: Light touch, pinprick, proprioception, and vibration is intact. DTRs are 2+ throughout except for 1 at the knees. Coordination of [id number] intact. Gait is deferred for now. LABORATORY DATA: Sodium is 137, potassium is 5, chloride is 97, carbon dioxide is 30, BUN of 20, creatinine of 0.9, and random glucose of 187. ASSESSMENT AND PLAN: A 61-year-old woman with history of hypertension, type 2 diabetes mellitus, diabetic peripheral neuropathy, history of pulmonary embolus on Xarelto, status post left knee revision who comes in with the episodes of syncope, found to have a low systolic and diastolic blood pressures given 1 liter intravenous fluids in the Emergency Room and was consulted, likely syncope is most likely a vasovagal from the cerebral hypoperfusion to the brain from low blood pressures. RECOMMENDATIONS: At this time recommended: 1. Orthostatic vital signs. 2. Keep blood pressure between 140 to 180. 3. Avoid sedative medications. 4. Advice adequate hydration. 5. Continue with Xarelto; continue since she has a history of PE, and continue with GI and DVT prophylaxis. No further neurological workup needed at this time. Get PT evaluation. Thank you for this consult. Ashwin Bentley MD
--- NOTE | 2017-05-24 17:02 | CARD ---
APPROVED REPORT EKG Measurement Heart [id number] <Conclusion> Normal sinus rhythm Normal ECG
[2017-05-24] MEDS: Oxycodone/Acetaminophen 5/325 mg Tab PO PRN (21:51)
[2017-05-25] MEDS: Oxycodone/Acetaminophen 5/325 mg Tab PO PRN ×2 (03:56→12:54)
--- NOTE | 2017-05-25 04:43 | CON ---
DATE: 05/24/2017 LOCATION: The patient is in room 269, bed 1. REASON FOR CONSULTATION: Syncope. HISTORY OF PRESENT ILLNESS: The patient is a 61-year-old female, who is known to have hypertension, diabetes type 2, pulmonary embolism, status post 4 surgeries on the right knee and the patient admitted with a history that she was in wheelchair at home and trying to get to the bed and suddenly she felt a severe chest pain on the left side of the neck and that was accompanied by a spinning around of the room and then she does not remember what happened. According to her, when she woke up, the family told her that she passed out. The patient denies any chest pain, shortness of breath, or palpitations associated with this episode. Denies any urinary or bowel incontinence. PAST MEDICAL HISTORY: The patient's past history is positive for hypertension, diabetes, pulmonary embolism, appendectomy, hysterectomy, tonsillectomy, right knee repair 4 times. ALLERGIES: THE PATIENT IS ALLERGIC TO CODEINE. PERSONAL HISTORY: Denies smoking. Denies drinking. FAMILY HISTORY: Not significant. MEDICATIONS: The patient's medication at home and as per the list including Xarelto and statin therapy. PHYSICAL EXAMINATION: VITAL SIGNS: Blood pressure 148/81, earlier blood pressure was 110/71, blood pressure in the emergency room 119/57, also one blood pressure recorded 96/57; temperature 97.5; pulse 82; respiration 18. HEENT: Head is normocephalic. Eyes, pupils are normal. Conjunctivae are slightly pale. NECK: JVP low. Carotids are equal. THORAX: AP diameter is normal. LUNGS: Clear. CARDIOVASCULAR: S1, S2. ABDOMEN: Soft. No tenderness. No organomegaly. Bowel sounds are normal. EXTREMITIES: No clubbing, no cyanosis. LABORATORY DATA: WBC is 7.9, hemoglobin 9.6, hematocrit 30.5, and platelets 242. Sodium 141, potassium 4.3, BUN 23, creatinine 0.7, sugar 165. AST, ALT, bilirubin normal. Troponin is less than 0.01 x 2. Cholesterol 156, LDL 83, and HDL 36. Random glucose 173. Hemoglobin A1c 7.4. EKG showed normal sinus rhythm. Chest x-ray showed no active pulmonary disease. Cardiovascular, no abnormality. CT scan of the head showed no acute intracranial hemorrhage or suspicions mass effect. DIAGNOSES: Syncope preceded by sharp pain on the left side of the neck and vertigo-like symptoms, most likely vasovagal syncope; history of hypertension; diabetes; history of pulmonary embolism, the patient is on Xarelto; hyperlipidemia; anemia. PLAN: The patient is on telemetry, being monitored for any arrhythmia. The patient is on meclizine 12.5 mg b.i.d., losartan 100 mg daily, Lipitor 40 mg daily, Lyrica 100 mg t.i.d., and Protonix 40 daily. The patient is getting 0.9 saline under 25 mL an hour. We will cut down to under 10 mL an hour. Repeat labs in the morning. The patient is on Xarelto *------* mg p.o. b.i.d. We will order an echocardiogram and we will follow with you. Elizabeth Kearney MD
[2017-05-25 06:07] VITALS: PULSE 87; O2SAT 94
[2017-05-25] MEDS: Sodium Chloride 0.9% 1,000 ML IV SCH (06:16)
[2017-05-25 06:39] LABS: BASO # 0.01 K/mm3 (0.0-2.0); BASO % 0.1 % (0.0-3.0); EOS # 0.1 (0.0-0.7); EOS % 1.5 % (1.5-5.0); GRAN # 4.9 (1.4-6.5); GRAN % 71.5 % (50.0-68.0); HEMATOCRIT 27.9 % (36.0-48.0); LYMPH # 1.3 (1.2-3.4); MEAN CELL VOLUME 85.1 fl (80.0-105.0); MEAN CORPUSCULAR HEMOGLOBIN 27.1 pg (25.0-35.0); MEAN CORPUSCULAR HGB CONC 31.9 g/dl (31.0-37.0); MEAN PLATELET VOLUME 9.3 fl (7.0-11.0); MONO # 0.5 (0.1-0.6); MONO % 7.9 % (1.0-6.0); RED CELL DISTRIBUTION WIDTH 13.8 % (11.5-14.5); WHITE BLOOD COUNT 6.9 10^3/ul (4.5-11.0)
[2017-05-25 06:52] LABS: ALKALINE PHOSPHATASE 77 U/L (38-126); ALT/SGPT 28 U/L (7-56); AST/SGOT 20 U/L (14-36); BILIRUBIN,TOTAL 0.5 mg/dL (0.2-1.3); BLOOD UREA NITROGEN 20 mg/dL (7-21); CALCIUM 8.8 mg/dL (8.4-10.5); CARBON DIOXIDE 28 mmol/L (21-33); CHLORIDE 106 mmol/L (98-107); GFR AFRICAN-AMERICAN > 60; GLUCOSE,RANDOM 146 mg/dL (70-110); POTASSIUM 3.9 mmol/L (3.6-5.0); SODIUM 142 mmol/L (132-148); TOTAL PROTEIN 6.4 g/dL (5.8-8.3)
[2017-05-25] MEDS: Pantoprazole 40 mg EC Tab PO SCH (10:10)
--- NOTE | 2017-05-25 11:56 | CT ---
PROCEDURE: CT OF THE TEMPORAL BONES WITHOUT CONTRAST HISTORY: Right ear infection COMPARISON: None available. TECHNIQUE: High resolution axial images of the temporal bones were obtained. Coronal and sagittal reformats were generated. Radiation dose: Total exam DLP = 429.95 mGy-cm. This CT exam was performed using one or more of the following dose reduction techniques: Automated exposure control, adjustment of the mA and/or kV according to patient size, and/or use of iterative reconstruction technique. FINDINGS: RIGHT TEMPORAL BONE: RIGHT MIDDLE EAR: There is small amount of soft tissue lateral to the ossicles and in the hypotympanum and thickening of the right tympanic membrane. No evidence of ossicular erosion. The scutum is normal in appearance. RIGHT INNER EAR: Cochlea: Normal. Semicircular canals: Normal. RIGHT MASTOID AIR CELLS: Normal. RIGHT INTERNAL AUDITORY CANAL: Normal. RIGHT EXTERNAL AUDITORY CANAL: There is abnormal soft tissue in the lateral half of the external auditory canal with stranding of fat in the pre and post auricular regions. There are also reactive free articular and intra parotid subcentimeter lymph nodes. There is also mild reactive changes in the right parotid gland. RIGHT VESTIBULAR AND COCHLEAR AQUEDUCT: Normal. OTHER FINDINGS: None. LEFT TEMPORAL BONE: LEFT MIDDLE EAR: Normal. LEFT INNER EAR: Cochlea: Normal. Semicircular canals: Normal. LEFT MASTOID AIR CELLS: Normal. LEFT INTERNAL AUDITORY CANAL: Normal. LEFT EXTERNAL AUDITORY CANAL: Normal. LEFT VESTIBULAR AND COCHLEAR AQUEDUCTS: Normal. OTHER FINDINGS: None. IMPRESSION: 1. Findings are most compatible with a right otitis externa predominantly involving the lateral half of the auditory canal with reactive pre-auricular and intra parotid lymph nodes and reactive changes in the right parotid gland. Follow-up after medical management is recommended to ensure complete resolution and if clinically indicated correlation with tissue sampling may be performed to exclude malignancy. 2. Mild otitis media. Absence of osseous erosion mitigates against cholesteatoma.
[2017-05-25] MEDS: Ciprofloxacin/Dexamethasone OTIC SUSP AU SCH ×2 (12:48→18:03)
[2017-05-25] MEDS ORDERED: Influenza Vaccine 60 mcg/0.5 mL SYR (4YR UP) IM ONE (13:28)
[2017-05-25] MEDS ORDERED: Pneumococcal 23-Valent Vaccine IM ONE (13:30)
--- NOTE | 2017-05-25 18:05 | CARD ---
APPROVED REPORT EXAM: Two-dimensional and M-mode echocardiogram with Doppler and color Doppler. INDICATION Syncope 2D DIMENSIONS Left Atrium (2D)4.1 (1.6-4.0cm)IVSd1.1 (0.7-1.1cm) LVDd3.9 (3.9-5.9cm)PWd1.1 (0.7-1.1cm) LVDs2.9 (2.5-4.0cm)FS (%) 25.4 % LVEF (%)50.8 (>50%) M-Mode DIMENSIONS Aortic Root3.50 (2.2-3.7cm)Aortic Cusp Exc.1.80 (1.5-2.0cm) Aortic Valve AoV Peak Ehaehtkc354.0cm/Edenilson Peak GR.6mmHg Mitral Valve MV E Kawxpjpt76.7cm/sMV A Hblvakkb88.7cm/sE/A ratio0.7 TDI Lateral E' Peak V9.85cm/sMedial E' Peak V10.30cm/sE/Lateral E'5.5 E/Medial E'5.2 Pulmonary Valve PV Peak Hkvcoomp96.8cm/sPV Peak Grad.1mmHg Tricuspid Valve TR Peak [id number]/sRAP IYOLKCNK81yrQlWU Peak Gr.13mmHg [id number] LEFT VENTRICLE The left ventricle is normal size. There is normal left ventricular wall thickness. The left ventricular function is normal.EF- 55% There is normal LV segmental wall motion. The left ventricular diastolic function is normal. No left ventricle thrombus noted on this study. There is no ventricular septal defect visualized. There is no left ventricular aneurysm. There is no mass noted in the left ventricle. RIGHT VENTRICLE The right ventricle is normal size. There is normal right ventricular wall thickness. The right ventricular systolic function is normal. ATRIA The left atrium is mildly dilated. The right atrium size is normal. The interatrial septum is intact with no evidence for an atrial septal defect. AORTIC VALVE The aortic valve is thickened but opens well. No aortic regurgitation is present. There is no aortic valvular stenosis. There is no aortic valvular vegetation. MITRAL VALVE The mitral valve is thickened but opens well. Mitral regurgitation is trace. There is no mitral valve stenosis. There is no evidence of mitral valve prolapse. TRICUSPID VALVE The tricuspid valve leaflets are thickened , but open well. There is trace tricuspid regurgitation.RVSP-23 mmof Hg. There is no tricuspid valve stenosis. There is no tricuspid valve prolapse or vegetation. GREAT VESSELS The aortic root is normal in size. The ascending aorta is normal in size. The pulmonary artery is normal. The IVC is normal in size and collapses >50% with inspiration. PERICARDIAL EFFUSION There is no pleural effusion. There is no pericardial effusion. <Conclusion> The left ventricle is normal size. There is normal left ventricular wall thickness. The left ventricular function is normal.EF- 55% There is normal LV segmental wall motion. No aortic regurgitation is present. Mitral regurgitation is trace. There is trace tricuspid regurgitation.RVSP-23 mmof Hg. The IVC is normal in size and collapses >50% with inspiration. There is no pericardial effusion.
[2017-05-25 18:32] VITALS: BP 136/67; RESP 18; TEMP 99
--- NOTE | 2017-05-25 20:57 | PN ---
DATE: 05/25/2017 LOCATION: The patient is in room 269, bed 1. REASON FOR CONSULTATION: Follow up syncope. SUBJECTIVE: The patient conscious and alert. Denies any chest pain, shortness of breath, or palpitation. The patient is lying flat in bed without any cardiac symptoms. PHYSICAL EXAMINATION: VITAL SIGNS: Blood pressure 118/65, respiration 19, pulse 87, and temperature 98.4. HEENT: Head is normocephalic. Eyes, pupils are normal. Conjunctivae are slightly pale. NECK: JVP low. Carotids are equal. THORAX: AP diameter is normal. LUNGS: No rales. CARDIOVASCULAR: S1, S2. ABDOMEN: Soft. No tenderness. No organomegaly. Bowel sounds are normal. EXTREMITIES: No clubbing, no cyanosis. LABORATORY DATA: WBC is 6.9, hemoglobin 8.9, hematocrit 27.9, and platelets 209. Sodium 142, potassium 3.9, BUN 20, and creatinine 0.6. AST, ALT normal. Total protein remain normal. Troponin is less than 0.01. TSH is 0.37. DIAGNOSES: Syncope preceded by sharp pain on the left side of the neck and vertigo-like symptoms, most likely vasovagal syncope; history of hypertension; diabetes mellitus; history of pulmonary embolism, the patient is on Xarelto; hyperlipidemia; anemia. PLAN: The patient had echocardiogram, which is normal with normal left ventricle ejection fraction of 55%. The patient is on Lipitor 40 mg p.o. at bedtime, Lyrica 100 mg p.o. t.i.d., Protonix 40 mg daily, Xarelto 50 mg p.o. b.i.d. Explained to the patient that when her knee gets better, which still has lot of pain, she can do IV Lexiscan stress test as outpatient. In the meantime, we will continue present therapy. We will follow up. Elizabeth Kearney MD
--- NOTE | 2017-05-26 08:11 | CON ---
DATE: 05/25/2017 CHIEF COMPLAINT: Right ear pain. HISTORY OF PRESENT ILLNESS: This is a 61-year-old female with a past medical history of hypertension, diabetes type 2, PE, on Xarelto, and right knee surgery, who came in to [facility] after syncopal episode. ENT was consulted for right ear pain. The patient reports that this morning she started having severe right ear pain, which she described as pressure like and worsens with touch. She rates her pain as 8/10 to 9/10. The pain is not radiating anywhere to the surrounding regions. She denies any hearing loss, tinnitus, or drainage from the ear. The patient denies any recent viral infections, but she does report that she has been having a lingering cough for last week. The patient denies any nasal congestion or any nasal drainage. She also denies any masses or lesions in her mouth. No other ENT complaints. PAST MEDICAL HISTORY: Hypertension, diabetes, PE. PAST SURGICAL HISTORY: Appendectomy, hysterectomy, left knee surgery, currently with vacuum, and tonsillectomy. ALLERGIES: CODEINE. MEDICATIONS: Please see medical reconciliation. FAMILY HISTORY: Unknown. SOCIAL HISTORY: She denies tobacco and alcohol abuse. REVIEW OF SYSTEMS: All 10 review systems were reviewed and all are negative except per HPI. PHYSICAL EXAMINATION: VITAL SIGNS: Blood pressure is 118/65, heart rate is 95, temperature is 98.2, oxygen 94% on room air. GENERAL: AAO x3, in no acute distress, holding the right ear. NOSE: The nasal cavities are patent bilaterally. No drainage appreciated. MOUTH: Moist mucous membrane. No masses or lesions. Absent tonsils. EARS: Left ear: Auditory canal is open and patent. Tympanic membranes are intact, translucent without any effusion or erythema. Right ear: Swelling and erythema is appreciated at the anterior aspect of the ear along with a preauricular region. There is slight swelling at the preauricular region. Tenderness to palpation of the pinna. There is yellow drainage coming out of the right external auditory canal. The external auditory canal is swollen and edematous. Severe tenderness in the right external auditory canal. Tympanic membrane was not visualized. LABORATORY DATA: White blood cell count is 6.9, her hemoglobin is 8.9, her hematocrit is 27.9, her platelet count is 209. ASSESSMENT: This is a 61-year-old female with a past medical history of hypertension, diabetes with a recent knee surgery with right ear pain secondary to otitis externa. PLAN: 1. The right external auditory canal has yellow drainage, which was suctioned and a wick was placed within the right external auditory canal. 2. Ciprodex drops were placed into the right ear canal. Recommend the patient to apply 3-4 drops 3 times a day for 1 week until she follows up with an ENT in outpatient. 3. Augmentin p.o. for 10 days. 4. Follow up with ENT within 1 week to reexamine the ear and possible removal of the wick. 5. Continue medical management per primary team. 6. The patient is clear from ENT perspective. This was discussed with the patient and discussed with Dr. Pack. We thank you for allowing us to participate in this patient's care. Sukhi Pack DO
--- NOTE | 2017-05-27 02:46 | CP.PCM.DIS ---
Provider - Provider Date of Admission: 05/24/17 00:40 Attending physician: Peggy Nichols MD Primary care physician: Phil Durand MD Time Spent in preparation of Discharge (in minutes): 45 Hospital Course - Lab Results Lab Results: Micro Results 05/25/17 09:59 Ear - Right Gram Stain - Final 05/25/17 09:59 Ear - Right Ear Culture - Preliminary Gram Negative Dinesh 05/24/17 10:15 Urine,Clean Catch Urine Culture - Final No Growth (<1,000 CFU/ML) Most Recent Lab Values WBC 6.9 10^3/ul (4.5-11.0) 05/25/17 06:15 RBC 3.28 10^6/uL (3.5-6.1) L 05/25/17 06:15 Hgb 8.9 g/dL (12.0-16.0) L 05/25/17 06:15 Hct 27.9 % (36.0-48.0) L 05/25/17 06:15 MCV 85.1 fl (80.0-105.0) 05/25/17 06:15 MCH 27.1 pg (25.0-35.0) 05/25/17 06:15 MCHC 31.9 g/dl (31.0-37.0) 05/25/17 06:15 RDW 13.8 % (11.5-14.5) 05/25/17 06:15 Plt Count 209 10^3/uL (120.0-450.0) 05/25/17 06:15 MPV 9.3 fl (7.0-11.0) 05/25/17 06:15 Gran % 71.5 % (50.0-68.0) H 05/25/17 06:15 Lymph % (Auto) 19.0 % (22.0-35.0) L 05/25/17 06:15 [place] % (Auto) 7.9 % (1.0-6.0) H 05/25/17 06:15 Eos % (Auto) 1.5 % (1.5-5.0) 05/25/17 06:15 Baso % (Auto) 0.1 % (0.0-3.0) 05/25/17 06:15 Gran # 4.90 (1.4-6.5) 05/25/17 06:15 Lymph # 1.3 (1.2-3.4) 05/25/17 06:15 [place] # 0.5 (0.1-0.6) 05/25/17 06:15 Eos # 0.1 (0.0-0.7) 05/25/17 06:15 Baso # 0.01 K/mm3 (0.0-2.0) 05/25/17 06:15 PT 11.2 SECONDS (9.4-12.5) 05/23/17 21:57 INR 1.03 (0.93-1.08) 05/23/17 21:57 APTT 26.8 Seconds (25.1-36.5) 05/23/17 21:57 Sodium 142 mmol/L (132-148) 05/25/17 06:15 Potassium 3.9 mmol/L (3.6-5.0) 05/25/17 06:15 Chloride 106 mmol/L (98-107) 05/25/17 06:15 Carbon Dioxide 28 mmol/L (21-33) 05/25/17 06:15 Anion Gap 12 (10-20) 05/25/17 06:15 BUN 20 mg/dL (7-21) 05/25/17 06:15 Creatinine 0.6 mg/dL (0.7-1.2) L 05/25/17 06:15 Est GFR ( Amer) > 60 05/25/17 06:15 Est GFR (Non-Af Amer) > 60 05/25/17 06:15 POC Glucose (mg/dL) 165 mg/dL (65-110) H 05/24/17 11:14 Random Glucose 146 mg/dL (70-110) H 05/25/17 06:15 Hemoglobin A1c 7.4 % (4.2-6.5) H D 05/24/17 09:30 Calcium 8.8 mg/dL (8.4-10.5) 05/25/17 06:15 Magnesium 1.7 mg/dL (1.7-2.2) 05/23/17 21:57 TIBC 263 ug/dL (265-497) L 05/25/17 08:39 Ferritin 65.3 ng/mL 05/25/17 08:39 Total Bilirubin 0.5 mg/dL (0.2-1.3) 05/25/17 06:15 AST 20 U/L (14-36) 05/25/17 06:15 ALT 28 U/L (7-56) 05/25/17 06:15 Alkaline Phosphatase 77 U/L (38-126) 05/25/17 06:15 Lactate Dehydrogenase 425 U/L (333-699) 05/23/17 21:57 Total Creatine Kinase 77 U/L (35-230) 05/23/17 21:57 Troponin I < 0.01 ng/mL 05/24/17 18:50 NT-Pro-B Natriuret Pep 173 pg/mL (0-450) 05/23/17 21:57 Total Protein 6.4 g/dL (5.8-8.3) 05/25/17 06:15 Albumin 3.2 g/dL (3.0-4.8) 05/25/17 06:15 Globulin 3.2 gm/dL 05/25/17 06:15 Albumin/Globulin Ratio 1.0 (1.1-1.8) L 05/25/17 06:15 Triglycerides 164 mg/dL (35-160) H 05/24/17 09:30 Cholesterol 156 mg/dL (130-200) 05/24/17 09:30 LDL Cholesterol Direct 83 mg/dL (0-129) 05/24/17 09:30 HDL Cholesterol 36 mg/dL (29-60) 05/24/17 09:30 Vitamin B12 411 pg/mL (239-931) 05/25/17 08:39 TSH 3rd Generation 0.37 mIU/mL (0.46-4.68) L 05/25/17 06:15 - Hospital Course Hospital Course: Date of Discharge: 05/25/17 Ms. Abraham is a 61 year old female with a past medical history for hypertension, DM2, provoked PE (after knee surgery in 6 months ago) who comes in complaining of a syncopal episode after being discharged yesterday from [facility] after procedure for wound vac on R knee 2 days prior. The patient's daughter reports the mother feeling dizzy in the wheelchair and soon after her head fell to the side and she was unarousable for about 8 minutes. The patient denied tongue biting, foaming at mouth, loss of bowel/urinary control or any seizure- like activity. Pt states that she has had past episodes of syncope that were unprovoked. EMT found pt to be hypotensive 80/60. Patient was transferred to telemetry for monitoring. Pt states that her knee problems began in 2008 with a meniscus issue which required surgery and the patient has since then required multiple knee replacements and revisions done on the R knee. In October 2016, she needed a revision surgery and afterward developed a PE and was placed on Xarelto. Last week, she stopped the Xarelto to undergo the washout and placement of a wound vac at [place]. Regarding her syncope, the pt states that she has had episodes for many years and was seen [place] [facility] [place] workups and they have all been negative. On this visit : CXR was negative; CT Head was unremarkable; CTA head and abd/pelvis were unremarkable; Echo showed EF 55% with no wall motion or valvular abnormalities. Cardiology, Neurology were consulted as well as wound care team for wound vac. On morning of d/c, pt was complaining of R ear pain and was noted to have pus in the external canal. ENT was consulted and mastoid CT was ordered which showed right otitis externa predominantly involving the lateral half of the auditory canal with reactive pre-auricular and intra parotid lymph nodes and reactive changes in the right parotid gland and mild otitis media w/ Absence of osseous erosion mitigates against cholesteatoma. ENT washed the ear and prescribed drops and antibiotics. culture was sent. PT consult was placed and they recommended TCU vs [facility]. IT was discussed with the patient in full and she requests discharge so she can follow up with her wound care clinic appointment in [place] the next day and not lose her appointment. MEdical team agreed that the decision was best for her and that she was medically stable for discharge. Syncope was likely due to vasovagal response to hypotension. Pt's vitals were stable throughout hospital stay and BP was also stable. patient prescribed LEvaquin and Ciprodex ear drops and PErcocet PRN for pain. will f/u Dr. Norris and Dr. Durand PMD. - Date & Time of H&P Date of H&P: 05/24/17 Time of H&P: 01:48 Discharge Exam - Head Exam Head Exam: ATRAUMATIC, NORMAL INSPECTION, NORMOCEPHALIC - Eye Exam Eye Exam: EOMI, Normal appearance, PERRL Pupil Exam: NORMAL ACCOMODATION - ENT Exam ENT Exam: Mucous Membranes Moist, Normal Oropharynx. absent: Normal External Ear Exam (R ear tammi pus and tender to touch cyndee-auricular; L ear normal) - Neck Exam Neck exam: Full Rom, Normal Inspection - Respiratory Exam Respiratory Exam: Clear to PA & Lateral, NORMAL BREATHING PATTERN. absent: Rhonchi, Wheezes, Respiratory Distress - Cardiovascular Exam Cardiovascular Exam: RRR, +S1, +S2 - GI/Abdominal Exam GI & Abdominal Exam: Normal Bowel Sounds, Soft. absent: Distended, Tenderness - Extremities Exam Extremities exam: pedal pulses present Additional comments: R knee wound vac in place - Back Exam Back exam: NORMAL INSPECTION - Neurological Exam Neurological exam: Alert, Oriented x3 - Psychiatric Exam Psychiatric exam: Normal Affect, Normal Mood - Skin Skin Exam: Normal Color, Warm Discharge Plan - Discharge Medications Prescriptions: Ciprofloxacin/Dexamethasone [Ciprodex Otic] 1 drop AU BID #1 bottle Levofloxacin [Levaquin] 500 mg PO DAILY #7 tablet oxyCODONE/Acetaminophen [Percocet 5/325 mg Tab] 1 ea PO Q6 #10 tab - Follow Up Plan Condition: STABLE Disposition: HOME/ ROUTINE Instructions: Otitis Externa (DC), Syncope (DC) Additional Instructions: - Stop Hypertension medication. - Stop diabetic medication by mouth. - Follow up fingerstick and adjust insulin. - Please follow up with your wound clinic TOMORROW for care for your wound/ wound vac. - Please follow up with ENT (ear/nose/throat) doctor. - Please put the ear drops in your RIGHT ear THREE TIMES A DAY for 1 week. - Please take the antibiotics provided every 8 hours for 1 week. - Please take the pain medication provided as prescribed, if needed. - Please follow up with your Primary Medical Doctor in 1 week. - If you experience fevers/chills, drainage from the wound, or worsening of pain , please come to Emergency Department for evaluation. Referrals: Lee Norris DO [Staff Provider] - Phil Durand MD [Primary Care Provider] -
== END 2017-05-25 21:05 | disposition home or self-care (01) ==
LOC: ED 21:34 → ERH 05-24 00:40 → 2RNO 05-24 02:19
PROVIDERS: ADMIT Internal Medicine; ATTEND Internal Medicine
DX: R55 Syncope and collapse (principal); I10 Essential (primary) hypertension; E78.5 Hyperlipidemia, unspecified; E11.42 Type 2 diabetes mellitus with diabetic polyneuropathy; D64.9 Anemia, unspecified; H60.91 Unspecified otitis externa, right ear; M54.2 Cervicalgia; Z88.5 Allergy status to narcotic agent; Z86.711 Personal history of pulmonary embolism; Z79.84 Long term (current) use of oral hypoglycemic drugs; Z79.01 Long term (current) use of anticoagulants; Z23 Encounter for immunization
CPT/HCPCS: 36415; 70450; 70480; 70496; 70498; 71010; 71275; 74175; 80053; 80061; 82550; 82607; 82728; 82948; 83036; 83550; 83615; 83735; 83880; 84443; 84484; 85025; 85610; 85730; 87070; 87086; 90674; 90732; 93005; 93306; 95812; 96360; 97116; 97162; 97530; 99285; G0008; G0009; G0378; G8978; G8979; J1885; J7040; Q9967